=== PATIENT | male | born 1995 ===

== ENCOUNTER 2017-05-02 03:22 | Emergency (ER) | payer OTHER ==
[2017-05-02 03:30] VITALS: TEMP 97.5
[2017-05-02] MEDS ORDERED: Naproxen 550 mg Tab PO STA (03:46)
[2017-05-02] MEDS ORDERED: Naproxen 550 mg Tab PO ONE (03:55)
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
[2017-05-02 05:47] VITALS: BP 126/74; PULSE 78; RESP 18
--- NOTE | 2017-05-02 09:18 | RAD ---
PROCEDURE: Cervical Spine Radiographs. HISTORY: Pain. COMPARISON: None. FINDINGS: BONES: Alignment maintained. No fracture. Dens Intact. DISC SPACES: Normal. SOFT TISSUES: Normal. No prevertebral soft tissue swelling. OTHER FINDINGS: Unerupted molar teeth noted. Consider dental consultation IMPRESSION: Normal cervical spine radiographs Unerupted molar teeth noted. Consider dental consultation
--- NOTE | 2017-05-02 11:16 | RAD ---
PROCEDURE: HISTORY: pain COMPARISON: None TECHNIQUE: Four views FINDINGS: No fracture or dislocation. No lytic lesions. No periosteal reaction. Unremarkable soft tissues. IMPRESSION: Unremarkable exam
[2017-05-02 20:40] VITALS: O2SAT 98
== END 2017-05-02 05:41 | disposition home or self-care (01) ==
LOC: C.ER 03:22
DX: S16.1XXA Strain of muscle, fascia and tendon at neck level, initial encounter (principal); V49.50XA Passenger injured in collision with unspecified motor vehicles in traffic accident, initial encounter; S70.11XA Contusion of right thigh, initial encounter